=== PATIENT | female | born 1945 | race Hispanic/Latino ===

== ENCOUNTER → 2017-11-07 | Outpatient (CLI) | payer OTHER | END | disposition home or self-care (01) | LOC: RAH 15:47 | PROVIDERS: ATTEND Family Medicine | DX: Z12.31 Encounter for screening mammogram for malignant neoplasm of breast (principal) | CPT/HCPCS: 77067 ==

== ENCOUNTER 2018-02-12 06:16 | Day surgery (SDC) | payer OTHER ==
[~2018-02-12] VITALS: Ht 165.1 cm; Wt 58.0 kg
[~2018-02-12 06:16] MED LIST: LOSA25TA16 PO; LOVA10TA2 PO; METF-446 PO; PANT40TA25 PO; SODIUM CHLORIDE 0.9% 1000ML 1,000 ML IV ONE
[2018-02-12 07:10] VITALS: BP 163/75
[2018-02-12] MEDS ORDERED: PROPOFOL 10 MG/ML 20ML VIAL IV ONE (08:24)
[2018-02-12 09:02] VITALS: BP 121/61
[2018-02-12 09:07] VITALS: BP 126/65
[2018-02-12 09:12] VITALS: BP 151/76
[2018-02-12 09:16] VITALS: BP 144/74
== END 2018-02-12 09:43 | disposition home or self-care (01) ==
LOC: DAH 06:16
PROVIDERS: ATTEND Internal Medicine Gastroenterology
DX: D12.2 Benign neoplasm of ascending colon (principal); K64.0 First degree hemorrhoids; K29.50 Unspecified chronic gastritis without bleeding; I85.00 Esophageal varices without bleeding; K76.6 Portal hypertension; K31.89 Other diseases of stomach and duodenum; E78.4 Other hyperlipidemia; E11.9 Type 2 diabetes mellitus without complications; I10 Essential (primary) hypertension; K57.92 Diverticulitis of intestine, part unspecified, without perforation or abscess without bleeding; K74.60 Unspecified cirrhosis of liver; D72.820 Lymphocytosis (symptomatic); Z79.84 Long term (current) use of oral hypoglycemic drugs; Z79.899 Other long term (current) drug therapy; Z90.710 Acquired absence of both cervix and uterus
CPT/HCPCS: 43239; 45380; 45385; 82948 ×2; 88305; 93005; A4606; J2704; J7030; 45384

== ENCOUNTER → 2018-03-08 | Outpatient (CLI) | payer OTHER ==
[~2018-03-08] MED LIST changes: +IOHEXOL 350 MG/ML 100ML INFUS..BTL IV ONE; -SODIUM CHLORIDE 0.9% 1000ML 1,000 ML IV ONE
== END | disposition home or self-care (01) ==
LOC: OIH 08:45
PROVIDERS: ATTEND Internal Medicine Gastroenterology
DX: I85.00 Esophageal varices without bleeding (principal); K31.89 Other diseases of stomach and duodenum; R18.8 Other ascites; I70.90 Unspecified atherosclerosis; M47.895 Other spondylosis, thoracolumbar region; I25.10 Atherosclerotic heart disease of native coronary artery without angina pectoris; R93.3 Abnormal findings on diagnostic imaging of other parts of digestive tract
CPT/HCPCS: 74178; Q9967

== ENCOUNTER → 2018-11-18 | Outpatient (CLI) | payer OTHER ==
[~2018-11-18] MED LIST changes: -IOHEXOL 350 MG/ML 100ML INFUS..BTL IV ONE; -LOSA25TA16 PO; +LOSA25TA41 PO
== END | disposition home or self-care (01) ==
LOC: RAH 15:39
PROVIDERS: ATTEND Family Medicine
DX: Z12.31 Encounter for screening mammogram for malignant neoplasm of breast (principal)
CPT/HCPCS: 77067

== ENCOUNTER → 2018-12-04 | Outpatient (CLI) | payer OTHER | END | disposition home or self-care (01) | LOC: RAH 09:18 | PROVIDERS: ATTEND Family Medicine | DX: K74.60 Unspecified cirrhosis of liver (principal); K82.8 Other specified diseases of gallbladder; K83.8 Other specified diseases of biliary tract; R18.8 Other ascites | CPT/HCPCS: 76700 ==

== ENCOUNTER → 2019-01-06 | Outpatient (CLI) | payer OTHER | END | disposition home or self-care (01) | LOC: RAH 09:05 | PROVIDERS: ATTEND Family Medicine | DX: K80.50 Calculus of bile duct without cholangitis or cholecystitis without obstruction (principal); K82.8 Other specified diseases of gallbladder | CPT/HCPCS: 74150 ==

== ENCOUNTER → 2019-08-15 | Outpatient (CLI) | payer OTHER ==
[~2019-08-15] MED LIST changes: +LATA7.5D OP; -LOSA25TA41 PO; +LOSA50TA64 PO
[2019-08-15 08:46] LABS: BASOPHILS % (AUTO) 0.6 % (0.0-5.0); EOSINOPHILS % (AUTO) 1.2 % (0.0-8.0); LYMPHOCYTES % (AUTO) 37.5 % (21.0-51.0); MEAN CORPUSCULAR HEMOGLOBIN 32.9 pg (27.0-33.0); MEAN CORPUSCULAR VOLUME 99.7 fL (79-99); MONOCYTES % (AUTO) 7.9 % (3.0-13.0); NEUTROPHILS % (AUTO) 52.8 % (40.0-77.0); PLATELET COUNT (AUTO) 80 K/uL (130-400); RED BLOOD CELL COUNT(AUTO) 3.01 MIL/uL (4.00-5.50); RED CELL DISTRIBUTION WIDTH 12.8 % (11.0-15.5); WHITE BLOOD COUNT (AUTO) 3.4 K/uL (4.8-10.8)
[2019-08-15 09:00] LABS: INR 1.09 (0.85-1.15); PROTHROMBIN TIME 11.7 SEC (9.6-11.6)
[2019-08-15 09:09] LABS: ALBUMIN 2.8 g/dL (3.5-5.0); BILIRUBIN,TOTAL 1.3 mg/dL (0.2-1.0); CREATININE 1.3 mg/dL (0.5-1.5); POTASSIUM 3.9 mmol/L (3.5-5.1); TOTAL PROTEIN, SERUM 7.1 g/dL (6.0-8.3)
== END | disposition home or self-care (01) ==
LOC: RAH 07:34
PROVIDERS: ATTEND Internal Medicine
DX: R18.8 Other ascites (principal); K83.8 Other specified diseases of biliary tract; K74.60 Unspecified cirrhosis of liver; R93.2 Abnormal findings on diagnostic imaging of liver and biliary tract
CPT/HCPCS: 36415; 76700; 80053; 82105; 85025; 85610

== ENCOUNTER → 2019-11-26 | Outpatient (CLI) | payer OTHER ==
[~2019-11-26] MED LIST changes: +ALBUMIN (HUMAN) 25% 200 ML IV SCH; -LATA7.5D OP; -LOSA50TA64 PO; -LOVA10TA2 PO; -METF-446 PO; -PANT40TA25 PO
--- NOTE | 2019-11-26 10:50 | NUR ---
U/S GD PARACENTESIS PROCEDURE PERFORMED BY DR. KAMARA. PUNCTURE SITE RIGHT LOWER QUADRANT OF ABDOMEN AND PATIENT TOLERATED PROCEDURE WELL. TOTAL REMOVED 6.5 LITERS OF CLOUDY YELLOW FLUID. END OF PROCEDURE AT 1130. CATHETER REMOVED AND DRESSING APPLIED. NO BLEEDING NOTED. ALBUMIN 25% 50 GRAMS GIVEN DURING PROCEDURE PER [facility] ALBUMIN PROTOCOL. RIGHT WRIST PIV DC'D, BANDAID APPLIED, DRESSING DRY AND INTACT. DISCHARGE INSTRUCTIONS GIVEN TO PATIENT. PATIENT VERBALIZED UNDERSTANDING. PT DISCHARGED VIA W/C, STABLE, AAO X3 WITH NO C/O PAIN. SPECIMEN SENT TO LAB.
== END | disposition home or self-care (01) ==
LOC: RAH 09:21
PROVIDERS: ATTEND Family Medicine
DX: R18.8 Other ascites (principal); R14.0 Abdominal distension (gaseous); I10 Essential (primary) hypertension; Z79.899 Other long term (current) drug therapy; Z87.891 Personal history of nicotine dependence; Z82.49 Family history of ischemic heart disease and other diseases of the circulatory system; Z83.3 Family history of diabetes mellitus
CPT/HCPCS: 36415; 49083; 85610; 85730; 87071; 87205; 89051; A4215

== ENCOUNTER → 2019-12-26 | Outpatient (CLI) | payer OTHER ==
[~2019-12-26] MED LIST changes: -ALBUMIN (HUMAN) 25% 200 ML IV SCH; +LATA7.5D OP; +LOSA50TA64 PO; +LOVA10TA2 PO; +METF-446 PO; +PANT40TA25 PO
== END | disposition home or self-care (01) ==
LOC: RAH 08:00
PROVIDERS: ATTEND Family Medicine
DX: Z12.31 Encounter for screening mammogram for malignant neoplasm of breast (principal)
CPT/HCPCS: 77067

== ENCOUNTER → 2020-02-02 | Outpatient (CLI) | payer OTHER ==
[~2020-02-02] MED LIST changes: -PANT40TA25 PO; +PANT40TA54 PO
== END | disposition home or self-care (01) ==
LOC: RAH 10:46
PROVIDERS: ATTEND Internal Medicine
DX: K74.60 Unspecified cirrhosis of liver (principal); R18.8 Other ascites
CPT/HCPCS: 76700

== ENCOUNTER → 2020-07-26 | Outpatient (CLI) | payer OTHER ==
[2020-07-26 10:25] LABS: ALBUMIN 2.9 g/dL (3.5-5.0); BILIRUBIN,TOTAL 1.1 mg/dL (0.2-1.0); CREATININE 1.8 mg/dL (0.5-1.5); TOTAL PROTEIN, SERUM 6.8 g/dL (6.0-8.3)
== END | disposition home or self-care (01) ==
LOC: RAH 08:25
PROVIDERS: ATTEND Internal Medicine Gastroenterology
DX: K74.60 Unspecified cirrhosis of liver (principal); R18.8 Other ascites
CPT/HCPCS: 36415; 80053

== ENCOUNTER → 2020-07-28 | Outpatient (CLI) | payer OTHER | END | disposition home or self-care (01) | LOC: RAH 09:56 | PROVIDERS: ATTEND Internal Medicine Gastroenterology | DX: K74.60 Unspecified cirrhosis of liver (principal); R18.8 Other ascites | CPT/HCPCS: 76700; 93975 ==

== ENCOUNTER → 2021-01-10 | Outpatient (CLI) | payer OTHER | END | disposition home or self-care (01) | LOC: RAH 16:05 | PROVIDERS: ATTEND Family Medicine | DX: Z12.31 Encounter for screening mammogram for malignant neoplasm of breast (principal) | CPT/HCPCS: 77067 ==

== ENCOUNTER → 2021-08-17 | Outpatient (CLI) | payer OTHER | END | disposition home or self-care (01) | LOC: RAH 08:26 | PROVIDERS: ATTEND Internal Medicine Gastroenterology | DX: K74.60 Unspecified cirrhosis of liver (principal); J90 Pleural effusion, not elsewhere classified; N26.1 Atrophy of kidney (terminal); R18.8 Other ascites | CPT/HCPCS: 76700; 93975 ==

== ENCOUNTER → 2021-08-26 | Outpatient (CLI) | payer OTHER ==
[~2021-08-26] MED LIST changes: +ALBUMIN (HUMAN) 25% 200 ML IV SCH; +LIDOCAINE HCL 1% 20 ML VIAL ONE
[2021-08-26 10:14] LABS: BASOPHILS % (AUTO) 0.3 % (0.0-5.0); HEMATOCRIT 23.4 % (36-48); LYMPHOCYTES % (AUTO) 22.2 % (21.0-51.0); MEAN CORPUSCULAR HEMOGLOBIN 33.8 pg (27.0-33.0); MEAN CORPUSCULAR HGB CONC 33.3 g/dL (32.0-36.0); MEAN CORPUSCULAR VOLUME 101.3 fL (79-99); MONOCYTES % (AUTO) 10.3 % (3.0-13.0); NEUTROPHILS % (AUTO) 64.9 % (40.0-77.0); PLATELET COUNT (AUTO) 63 K/uL (130-400); RED BLOOD CELL COUNT(AUTO) 2.31 MIL/uL (4.00-5.50); RED CELL DISTRIBUTION WIDTH 13.2 % (11.0-15.5)
[2021-08-26 10:23] LABS: INR 1.16 (0.85-1.15); PROTHROMBIN TIME 12.5 SEC (9.6-11.6)
[2021-08-26 10:28] LABS: ALBUMIN 2.7 g/dL (3.5-5.0); BILIRUBIN,TOTAL 1.2 mg/dL (0.2-1.0); POTASSIUM 5.6 mmol/L (3.5-5.1); TOTAL PROTEIN, SERUM 6.6 g/dL (6.0-8.3)
[2021-08-26 11:23] LABS: LYMPHOCYTES % (MANUAL) 33 % (22-44); MONOCYTES % (MANUAL) 2 % (2-9); SEGMENTED NEUTROPHILS % 65 % (40-70)
[2021-08-26 11:27] LABS: MAN.DIFF COMMENT-IMPRESSION MANUAL DIFFERENTIAL
[2021-08-26 11:30] LABS: PLATELET MORPHOLOGY COMMENT DECREASED
[2021-08-26 14:12] LABS: SPECIMENTYPE,BODY FLUID ASCITES
[2021-08-26 14:13] LABS: APPEARANCE BODY FLUID SLIGHTLY CLOUDY (CLEAR); COLOR,BODY FLUID LT YELLOW (LT YELLOW); TOTAL VOLUME,BODY FLUID 7500 mL
[2021-08-26 14:14] LABS: BODY FLUID WBC 62 /cu. mm.
[2021-08-26 14:15] LABS: BODY FLUID RBC 32 /cu. mm.
[2021-08-26 14:31] LABS: BF LYMPHOCYTE 65 %; BF MONOCYTE 14 %
== END | disposition home or self-care (01) ==
LOC: RAH 09:04
PROVIDERS: ATTEND Internal Medicine Gastroenterology
DX: R18.8 Other ascites (principal); K74.60 Unspecified cirrhosis of liver; J90 Pleural effusion, not elsewhere classified; Z79.01 Long term (current) use of anticoagulants
CPT/HCPCS: 36415; 49083; 80053; 85025; 85610; 87071; 87205; 88112; 88305; 89051; C1729; P9046

== ENCOUNTER → 2021-09-09 | Outpatient (CLI) | payer OTHER ==
[~2021-09-09] MED LIST changes: -LIDOCAINE HCL 1% 20 ML VIAL ONE; +LIDOCAINE HCL MPF 1% 5ML VIAL ONE
[2021-09-09 14:47] LABS: APPEARANCE BODY FLUID CLOUDY (CLEAR); COLOR,BODY FLUID LT YELLOW (LT YELLOW); SPECIMENTYPE,BODY FLUID ASCITES; TOTAL VOLUME,BODY FLUID 4800 mL
[2021-09-09 14:48] LABS: BODY FLUID RBC 159 /cu. mm.; BODY FLUID WBC 67 /cu. mm.
[2021-09-09 14:55] LABS: BF LYMPHOCYTE 41 %; BF MONOCYTE 31 %
== END | disposition home or self-care (01) ==
LOC: RAH 08:54
PROVIDERS: ATTEND Internal Medicine Gastroenterology
DX: R18.8 Other ascites (principal); K74.60 Unspecified cirrhosis of liver; J90 Pleural effusion, not elsewhere classified; Z79.01 Long term (current) use of anticoagulants; Z79.899 Other long term (current) drug therapy
CPT/HCPCS: 49083; 87071; 87205; 89051; C1729; J3490 ×2; P9046

== ENCOUNTER → 2021-09-23 | Outpatient (CLI) | payer OTHER ==
[~2021-09-23] MED LIST changes: +CYAN500L3 SL; +FERS325 PO; +FURO20TA4 PO; -LIDOCAINE HCL MPF 1% 5ML VIAL ONE; +ONDA4TAB10 PO; +SPIR50TA5 PO; +SUCR1TAB2 PO
[2021-09-23 10:04] LABS: ALBUMIN 2.7 g/dL (3.5-5.0); BILIRUBIN,TOTAL 1.5 mg/dL (0.2-1.0); POTASSIUM 3.9 mmol/L (3.5-5.1); TOTAL PROTEIN, SERUM 6.4 g/dL (6.0-8.3)
[2021-09-23 15:12] LABS: SPECIMENTYPE,BODY FLUID ASCITES
[2021-09-23 15:13] LABS: APPEARANCE BODY FLUID SLIGHTLY CLOUDY (CLEAR); BODY FLUID RBC 65 /cu. mm.; BODY FLUID WBC 71 /cu. mm.; COLOR,BODY FLUID YELLOW (LT YELLOW); TOTAL VOLUME,BODY FLUID 3500 mL
[2021-09-23 15:26] LABS: BF LYMPHOCYTE 78 %; BF MESOTHELIAL 5 %; BF MONOCYTE 2 %
== END | disposition home or self-care (01) ==
LOC: RAH 08:51
PROVIDERS: ATTEND Internal Medicine Gastroenterology
DX: R18.8 Other ascites (principal); K74.60 Unspecified cirrhosis of liver; E11.22 Type 2 diabetes mellitus with diabetic chronic kidney disease; I12.9 Hypertensive chronic kidney disease with stage 1 through stage 4 chronic kidney disease, or unspecified chronic kidney disease; N18.32 Chronic kidney disease, stage 3b; J90 Pleural effusion, not elsewhere classified; K21.9 Gastro-esophageal reflux disease without esophagitis; E78.5 Hyperlipidemia, unspecified; D64.9 Anemia, unspecified; Z79.01 Long term (current) use of anticoagulants; Z79.899 Other long term (current) drug therapy; Z90.710 Acquired absence of both cervix and uterus; Z86.010 Personal history of colon polyps
CPT/HCPCS: 36415; 49083; 80053; 87071; 87205; 88112; 88305; 89051; C1729; P9046

== ENCOUNTER 2021-10-03 19:12 | Observation (INO) | payer OTHER ==
[~2021-10-03] VITALS: Ht 165.1 cm; Wt 58.9 kg
[~2021-10-03 19:12] MED LIST changes: -ALBUMIN (HUMAN) 25% 200 ML IV SCH; -CYAN500L3 SL; -FERS325 PO; -FURO20TA4 PO; -ONDA4TAB10 PO; -SPIR50TA5 PO; -SUCR1TAB2 PO
[2021-10-03 19:51] LABS: BASOPHILS % (AUTO) 0.3 % (0.0-5.0); EOSINOPHILS % (AUTO) 1.3 % (0.0-8.0); HEMATOCRIT 22.4 % (36-48); LYMPHOCYTES % (AUTO) 21.5 % (21.0-51.0); MEAN CORPUSCULAR HEMOGLOBIN 32.8 pg (27.0-33.0); MEAN CORPUSCULAR HGB CONC 33.9 g/dL (32.0-36.0); MEAN CORPUSCULAR VOLUME 96.6 fL (79-99); MONOCYTES % (AUTO) 9.4 % (3.0-13.0); NEUTROPHILS % (AUTO) 67.2 % (40.0-77.0); PLATELET COUNT (AUTO) 69 K/uL (130-400); RED BLOOD CELL COUNT(AUTO) 2.32 MIL/uL (4.00-5.50); RED CELL DISTRIBUTION WIDTH 12.4 % (11.0-15.5); WHITE BLOOD COUNT (AUTO) 3.1 K/uL (4.8-10.8)
[2021-10-03 20:00] LABS: POTASSIUM 4.8 mmol/L (3.5-5.1)
[2021-10-03 20:09] LABS: BILIRUBIN,TOTAL 1.5 mg/dL (0.2-1.0); TOTAL PROTEIN, SERUM 6.3 g/dL (6.0-8.3)
[2021-10-03 20:10] LABS: B-TYPE NATRIURETIC PEPTIDE 90 pg/mL (0-100)
[2021-10-03 20:13] LABS: PLATELET MORPHOLOGY COMMENT DECREASED
[2021-10-03] MEDS ORDERED: LACTULOSE 20 GM/30 ML UDCUP PO ONE (22:00)
[2021-10-04] VITALS (9 sets, daily range): BP systolic 119–132; BP diastolic 50–71
[2021-10-04] MEDS ORDERED: 0.9%NACL 1000ML 1,000 ML IV SCH (04:30)
[2021-10-04] MEDS ORDERED: CYAN500L3 SL (06:09)
[2021-10-04] MEDS ORDERED: SUCR1TAB2 PO (06:09)
[2021-10-04] MEDS ORDERED: ONDA4TAB10 PO (06:10)
[2021-10-04] MEDS ORDERED: FURO20TA4 PO (06:12)
[2021-10-04] MEDS ORDERED: FERS325 PO (06:12)
[2021-10-04] MEDS ORDERED: SPIR50TA5 PO (06:12)
[2021-10-04 06:43] LABS: ALBUMIN 2.4 g/dL (3.5-5.0); BILIRUBIN,TOTAL 1.2 mg/dL (0.2-1.0); CREATININE 1.4 mg/dL (0.5-1.5); MAGNESIUM 1.4 mg/dL (1.80-2.40); PHOSPHORUS 2.9 mg/dL (2.5-4.9); POTASSIUM 4.3 mmol/L (3.5-5.1)
[2021-10-04 07:28] LABS: BASOPHILS % (AUTO) 0.7 % (0.0-5.0); EOSINOPHILS % (AUTO) 3.1 % (0.0-8.0); HEMATOCRIT 21.6 % (36-48); MEAN CORPUSCULAR HEMOGLOBIN 33.3 pg (27.0-33.0); MEAN CORPUSCULAR HGB CONC 34.3 g/dL (32.0-36.0); MEAN CORPUSCULAR VOLUME 97.3 fL (79-99); MONOCYTES % (AUTO) 10.2 % (3.0-13.0); PLATELET COUNT (AUTO) 66 K/uL (130-400); RED BLOOD CELL COUNT(AUTO) 2.22 MIL/uL (4.00-5.50); RED CELL DISTRIBUTION WIDTH 12.6 % (11.0-15.5); WHITE BLOOD COUNT (AUTO) 2.9 K/uL (4.8-10.8)
[2021-10-04 08:06] LABS: EOSINOPHILS % (MANUAL) 2 % (1-6); LYMPHOCYTES % (MANUAL) 32 % (22-44); MAN.DIFF COMMENT-IMPRESSION MANUAL DIFFERENTIAL; MONOCYTES % (MANUAL) 4 % (2-9); PLATELET MORPHOLOGY COMMENT DECREASED; SEGMENTED NEUTROPHILS % 62 % (40-70)
[2021-10-04 09:01] LABS: INR 1.1 (0.85-1.15); PROTHROMBIN TIME 11.9 SEC (9.6-11.6)
[2021-10-04 09:02] LABS: PARTIAL THROMBOPLASTIN TIME 28.3 SEC (26.3-35.5)
[2021-10-04] MEDS ORDERED: LACTULOSE 20 GM/30 ML UDCUP ONE (13:37)
[2021-10-04] MEDS: SUCRALFATE 1 GM TABLET PO SCH ×2 (13:37→17:10)
[2021-10-04] MEDS ORDERED: ATORVASTATIN 10 MG TABLET PO SCH (21:00)
[2021-10-05] MEDS ORDERED: PANTOPRAZOLE 40 MG TAB DR PO SCH (09:00)
[2021-10-05] MEDS ORDERED: LOSARTAN 50 MG TABLET PO SCH (09:00)
[2021-10-05] MEDS ORDERED: FERROUS SULFATE 325 MG TABLET.DR PO SCH (09:00)
[2021-10-05] MEDS ORDERED: SPIRONOLACTONE 25 MG TAB PO SCH (09:00)
[2021-10-05] MEDS ORDERED: FUROSEMIDE 20 MG TABLET PO SCH (09:00)
[2021-10-05] MEDS ORDERED: CYANOCOBALAMIN (VITAMIN B-12) 1,000 MCG TABLET PO SCH (09:00)
== END 2021-10-04 21:00 | disposition home or self-care (01) ==
LOC: EDH 19:12 → EDHIP 23:13 → 3DH 10-04 04:46
PROVIDERS: ADMIT Internal Medicine Critical Care Medicine; ATTEND Internal Medicine Critical Care Medicine
DX: K72.90 Hepatic failure, unspecified without coma (principal); R18.8 Other ascites; K74.60 Unspecified cirrhosis of liver; R11.2 Nausea with vomiting, unspecified; I85.00 Esophageal varices without bleeding; E88.09 Other disorders of plasma-protein metabolism, not elsewhere classified; E83.42 Hypomagnesemia; E87.8 Other disorders of electrolyte and fluid balance, not elsewhere classified; E87.1 Hypo-osmolality and hyponatremia; I86.4 Gastric varices; D72.810 Lymphocytopenia; K64.8 Other hemorrhoids; I12.9 Hypertensive chronic kidney disease with stage 1 through stage 4 chronic kidney disease, or unspecified chronic kidney disease; E11.22 Type 2 diabetes mellitus with diabetic chronic kidney disease; N18.9 Chronic kidney disease, unspecified; D63.1 Anemia in chronic kidney disease; K21.9 Gastro-esophageal reflux disease without esophagitis; I86.8 Varicose veins of other specified sites; E11.21 Type 2 diabetes mellitus with diabetic nephropathy; Z79.899 Other long term (current) drug therapy
CPT/HCPCS: 36415 ×2; 49083; 71045; 76705; 80053 ×2; 82140 ×2; 82150; 83690; 83735; 83880; 84100; 84484; 85025 ×2; 85610; 85730; 87804 ×2; 93005; 96360; 96361; 99285; C1729; G0378 ×22

== ENCOUNTER 2021-11-07 10:57 | Emergency (ER) | payer OTHER ==
[~2021-11-07] VITALS: Ht 165.1 cm; Wt 58.5 kg
[~2021-11-07 10:57] MED LIST changes: -ALBUMIN (HUMAN) 25% 200 ML IV ONE; -DOCU-116 PO; -FERR325T22 PO; -LIDOCAINE HCL 1% MDV 50ML VIAL ONE
[2021-11-07 16:04] LABS: BASOPHILS % (AUTO) 0.6 % (0.0-5.0); LYMPHOCYTES % (AUTO) 31.4 % (21.0-51.0); MEAN CORPUSCULAR HEMOGLOBIN 32.4 pg (27.0-33.0); MEAN CORPUSCULAR HGB CONC 33.2 g/dL (32.0-36.0); MEAN CORPUSCULAR VOLUME 97.8 fL (79-99); MONOCYTES % (AUTO) 8.9 % (3.0-13.0); NEUTROPHILS % (AUTO) 55.5 % (40.0-77.0); PLATELET COUNT (AUTO) 60 K/uL (130-400); RED BLOOD CELL COUNT(AUTO) 2.25 MIL/uL (4.00-5.50); RED CELL DISTRIBUTION WIDTH 14.9 % (11.0-15.5); WHITE BLOOD COUNT (AUTO) 1.7 K/uL (4.8-10.8)
[2021-11-07] MEDS ORDERED: FERR325T22 PO ×2 (16:51)
[2021-11-07] MEDS ORDERED: DOCU-116 PO (16:51)
[2021-11-07 17:04] VITALS: BP 118/57
[2021-11-07 17:08] LABS: BAND NEUTROPHILS % (MANUAL) 2 % (0-2); BASOPHILS % (MANUAL) 1 % (0-2); EOSINOPHILS % (MANUAL) 1 % (1-6); LYMPHOCYTES % (MANUAL) 28 % (22-44); MAN.DIFF COMMENT-IMPRESSION MANUAL DIFFERENTIAL; MONOCYTES % (MANUAL) 3 % (2-9); SEGMENTED NEUTROPHILS % 65 % (40-70)
[2021-11-07 17:09] LABS: PLATELET MORPHOLOGY COMMENT DECREASED
[2021-12-16] MEDS ORDERED: CIPR-279 PO (13:28)
[2021-12-19] MEDS ORDERED: LEVO250T43 PO (07:59)
[2021-12-19] MEDS ORDERED: METR-172 PO (07:59)
== END 2021-11-07 17:54 | disposition home or self-care (01) ==
LOC: EDH 10:57
DX: D64.9 Anemia, unspecified (principal); R18.8 Other ascites; E11.9 Type 2 diabetes mellitus without complications; I10 Essential (primary) hypertension; Z79.84 Long term (current) use of oral hypoglycemic drugs; Z79.899 Other long term (current) drug therapy
CPT/HCPCS: 36415; 36430; 49083; 80053; 85025; 85610; 86850; 86900; 86901; 86923; 89051; 96365; C1729; J3490; P9016; P9046

== ENCOUNTER → 2021-11-07 | Outpatient (CLI) | payer OTHER ==
[~2021-11-07] MED LIST changes: +ALBUMIN (HUMAN) 25% 200 ML IV ONE; +CYAN500L3 SL; +DOCU-116 PO; +FERR325T22 PO; +FERS325 PO; +FURO20TA4 PO; -LATA7.5D OP; +LIDOCAINE HCL 1% MDV 50ML VIAL ONE; +ONDA4TAB10 PO; +SPIR50TA5 PO; +SUCR1TAB2 PO
[2021-11-07 09:27] LABS: MEAN CORPUSCULAR HEMOGLOBIN 33.2 pg (27.0-33.0); MEAN CORPUSCULAR VOLUME 100.5 fL (79-99); PLATELET COUNT (AUTO) 79 K/uL (130-400); RED BLOOD CELL COUNT(AUTO) 2.08 MIL/uL (4.00-5.50); RED CELL DISTRIBUTION WIDTH 12.9 % (11.0-15.5); WHITE BLOOD COUNT (AUTO) 2.4 K/uL (4.8-10.8)
[2021-11-07 09:38] LABS: ALBUMIN 2.5 g/dL (3.5-5.0); BILIRUBIN,TOTAL 0.9 mg/dL (0.2-1.0); CREATININE 2.1 mg/dL (0.5-1.5); POTASSIUM 4.8 mmol/L (3.5-5.1)
[2021-11-07 09:42] LABS: INR 1.11 (0.85-1.15)
[2021-11-07 10:01] LABS: BAND NEUTROPHILS % (MANUAL) 1 % (0-2); EOSINOPHILS % (MANUAL) 1 % (1-6); LYMPHOCYTES % (MANUAL) 13 % (22-44); MONOCYTES % (MANUAL) 5 % (2-9); SEGMENTED NEUTROPHILS % 80 % (40-70)
[2021-11-07 10:02] LABS: MAN.DIFF COMMENT-IMPRESSION MANUAL DIFFERENTIAL; PLATELET MORPHOLOGY COMMENT DECREASED
[2021-11-07 10:06] LABS: HEMATOCRIT 20.9 % (36-48)
[2021-11-07 17:41] LABS: APPEARANCE BODY FLUID CLEAR (CLEAR); BODY FLUID WBC 40 /cu. mm.; COLOR,BODY FLUID LT YELLOW (LT YELLOW); SPECIMENTYPE,BODY FLUID ASCITES; TOTAL VOLUME,BODY FLUID 9000 mL
[2021-11-07 17:42] LABS: BODY FLUID RBC 46 /cu. mm.
[2021-11-07 18:28] LABS: BF LYMPHOCYTE 43 %; BF MONOCYTE 4 %; BF OTHER CELLS 2
== END | disposition home or self-care (01) ==
LOC: RAH 08:00
PROVIDERS: ATTEND Internal Medicine Gastroenterology
DX: R18.8 Other ascites (principal); K74.60 Unspecified cirrhosis of liver; E11.22 Type 2 diabetes mellitus with diabetic chronic kidney disease; I12.9 Hypertensive chronic kidney disease with stage 1 through stage 4 chronic kidney disease, or unspecified chronic kidney disease; N18.32 Chronic kidney disease, stage 3b; J90 Pleural effusion, not elsewhere classified; K21.9 Gastro-esophageal reflux disease without esophagitis; E78.5 Hyperlipidemia, unspecified; D64.9 Anemia, unspecified; Z79.899 Other long term (current) drug therapy; Z90.710 Acquired absence of both cervix and uterus; Z86.010 Personal history of colon polyps; Z98.890 Other specified postprocedural states; Z79.01 Long term (current) use of anticoagulants
CPT/HCPCS: 36415; 49083; 80053; 85025; 85610; 89051; C1729; J3490; P9046; 96365

== ENCOUNTER → 2021-11-14 | Outpatient (CLI) | payer OTHER ==
[~2021-11-14] MED LIST changes: +ALBUMIN (HUMAN) 25% 200 ML IV SCH; +DOCU-116 PO; +FERR325T22 PO; +LIDOCAINE HCL 1% MDV 50ML VIAL ONE
[2021-11-14 14:42] LABS: APPEARANCE BODY FLUID CLEAR (CLEAR); COLOR,BODY FLUID YELLOW (LT YELLOW); SPECIMENTYPE,BODY FLUID ASCITES; TOTAL VOLUME,BODY FLUID 3100 mL
[2021-11-14 14:45] LABS: BODY FLUID WBC 76 /cu. mm.
[2021-11-14 14:46] LABS: BODY FLUID RBC 495 /cu. mm.
[2021-11-14 15:17] LABS: BF LYMPHOCYTE 31 %; BF MESOTHELIAL 56 %; BF MONOCYTE 12 %
== END | disposition home or self-care (01) ==
LOC: RAH 08:04
PROVIDERS: ATTEND Internal Medicine Gastroenterology
DX: R18.8 Other ascites (principal); K74.60 Unspecified cirrhosis of liver; E11.22 Type 2 diabetes mellitus with diabetic chronic kidney disease; I12.9 Hypertensive chronic kidney disease with stage 1 through stage 4 chronic kidney disease, or unspecified chronic kidney disease; N18.32 Chronic kidney disease, stage 3b; J90 Pleural effusion, not elsewhere classified; K21.9 Gastro-esophageal reflux disease without esophagitis; E78.5 Hyperlipidemia, unspecified; D64.9 Anemia, unspecified; Z98.890 Other specified postprocedural states; Z90.710 Acquired absence of both cervix and uterus; Z79.01 Long term (current) use of anticoagulants; Z79.899 Other long term (current) drug therapy
CPT/HCPCS: 49083; 89051; C1729; J3490; P9046

== ENCOUNTER → 2021-11-22 | Outpatient (CLI) | payer OTHER ==
[2021-11-22 14:24] LABS: APPEARANCE BODY FLUID CLEAR (CLEAR); COLOR,BODY FLUID YELLOW (LT YELLOW); SPECIMENTYPE,BODY FLUID ASCITES; TOTAL VOLUME,BODY FLUID 3400 mL
[2021-11-22 14:25] LABS: BODY FLUID RBC 86 /cu. mm.; BODY FLUID WBC 36 /cu. mm.
[2021-11-22 15:02] LABS: BF LYMPHOCYTE 63 %; BF MESOTHELIAL 27 %
== END | disposition home or self-care (01) ==
LOC: RAH 07:45
PROVIDERS: ATTEND Internal Medicine Gastroenterology
DX: R18.8 Other ascites (principal); K74.60 Unspecified cirrhosis of liver; E11.22 Type 2 diabetes mellitus with diabetic chronic kidney disease; I12.9 Hypertensive chronic kidney disease with stage 1 through stage 4 chronic kidney disease, or unspecified chronic kidney disease; J90 Pleural effusion, not elsewhere classified; N18.32 Chronic kidney disease, stage 3b; K21.9 Gastro-esophageal reflux disease without esophagitis; E78.5 Hyperlipidemia, unspecified; D64.9 Anemia, unspecified; Z98.890 Other specified postprocedural states; Z90.710 Acquired absence of both cervix and uterus; Z79.899 Other long term (current) drug therapy; Z79.01 Long term (current) use of anticoagulants
CPT/HCPCS: 49083; 89051; C1729; J3490; P9046

== ENCOUNTER → 2021-11-28 | Outpatient (CLI) | payer OTHER ==
[~2021-11-28] MED LIST changes: -LIDOCAINE HCL 1% MDV 50ML VIAL ONE
[2021-11-28 14:07] LABS: SPECIMENTYPE,BODY FLUID ASCITES
[2021-11-28 14:08] LABS: APPEARANCE BODY FLUID CLEAR (CLEAR); COLOR,BODY FLUID YELLOW (LT YELLOW); TOTAL VOLUME,BODY FLUID 3000 mL
[2021-11-28 14:11] LABS: BODY FLUID RBC 98 /cu. mm.; BODY FLUID WBC 122 /cu. mm.
[2021-11-28 14:27] LABS: BF LYMPHOCYTE 42 %; BF MESOTHELIAL 47 %; BF MONOCYTE 10 %
== END ==
LOC: RAH 08:10
PROVIDERS: ATTEND Internal Medicine Gastroenterology
DX: R18.8 Other ascites (principal)
CPT/HCPCS: 49083; 89051; C1729; P9046

== ENCOUNTER 2021-12-02 13:57 | Inpatient (IN) | payer OTHER ==
[~2021-12-02] VITALS: Ht 165.1 cm; Wt 49.6 kg
[~2021-12-02 13:57] MED LIST changes: -ALBUMIN (HUMAN) 25% 200 ML IV SCH
[2021-12-02 14:21] LABS: BASOPHILS % (AUTO) 0.7 % (0.0-5.0); HEMATOCRIT 31.5 % (36-48); LYMPHOCYTES % (AUTO) 28.5 % (21.0-51.0); MEAN CORPUSCULAR HEMOGLOBIN 33.1 pg (27.0-33.0); MEAN CORPUSCULAR HGB CONC 34.3 g/dL (32.0-36.0); MEAN CORPUSCULAR VOLUME 96.6 fL (79-99); NEUTROPHILS % (AUTO) 62.1 % (40.0-77.0); PLATELET COUNT (AUTO) 69 K/uL (130-400); RED BLOOD CELL COUNT(AUTO) 3.26 MIL/uL (4.00-5.50); RED CELL DISTRIBUTION WIDTH 15.2 % (11.0-15.5)
[2021-12-02 14:33] LABS: CREATININE 2.4 mg/dL (0.5-1.5); POTASSIUM 4.8 mmol/L (3.5-5.1)
[2021-12-02 14:42] LABS: ALBUMIN 3.1 g/dL (3.5-5.0); TOTAL PROTEIN, SERUM 6.9 g/dL (6.0-8.3)
[2021-12-02 14:46] LABS: INR 1.04 (0.85-1.15); PROTHROMBIN TIME 11.3 SEC (9.6-11.6)
[2021-12-02 14:47] LABS: PARTIAL THROMBOPLASTIN TIME 25.1 SEC (26.3-35.5)
[2021-12-02] MEDS ORDERED: LACTULOSE 20 GM/30 ML UDCUP PO ONE (15:30)
[2021-12-02 15:42] LABS: BAND NEUTROPHILS % (MANUAL) 1 % (0-2); LYMPHOCYTES % (MANUAL) 24 % (22-44); MAN.DIFF COMMENT-IMPRESSION MANUAL DIFFERENTIAL; MONOCYTES % (MANUAL) 5 % (2-9); SEGMENTED NEUTROPHILS % 70 % (40-70)
[2021-12-02] MEDS ORDERED: 0.9%NACL 1000ML 1,095 ML IV ONE (16:00)
[2021-12-02] MEDS ORDERED: CEFTRIAXONE 1G VIAL IVP ONE (16:00)
[2021-12-02] MEDS: LACTULOSE 20 GM/30 ML UDCUP PO SCH ×2 (16:00→20:54)
[2021-12-02] MEDS ORDERED: LACTULOSE 20 GM/30 ML UDCUP PO PRN (16:00)
[2021-12-02] MEDS ORDERED: ZOSYN 3.375GM +NS 50ML IV SCH (16:00)
[2021-12-02] MEDS: 0.9%NACL 1000ML 1,000 ML IV SCH (16:00)
[2021-12-02] MEDS ORDERED: ALBUMIN (HUMAN) 25% 100 ML IV PRN (16:00)
[2021-12-02] MEDS ORDERED: ONDANSETRON 4MG INJ IVP ONE (16:00)
[2021-12-02] MEDS ORDERED: ACETAMINOPHEN 650 MG SUPPOSITORY RC PRN (16:00)
[2021-12-02] MEDS ORDERED: CLONIDINE HCL 0.1 MG TABLET PO PRN (16:00)
[2021-12-02] MEDS: OCTREOTIDE ACETATE 100 MCG/ML AMP SQ SCH (16:00)
[2021-12-02 16:04] LABS: APPEARANCE,URINE SL CLOUDY (CLEAR); BILIRUBIN,URINE NEGATIVE (NEGATIVE); COLOR,URINE YELLOW (YELLOW); GLUCOSE, URINE (UA) NEGATIVE (NEGATIVE); KETONES,URINE NEGATIVE (NEGATIVE); LEUKOCYTE ESTERASE ,URINE SMALL (NEGATIVE); NITRATE,URINE NEGATIVE (NEGATIVE); OCCULT BLOOD,URINE NEGATIVE (NEGATIVE); PH,URINE 5.5 (5.0-8.0); PROTEIN,URINE NEGATIVE (NEGATIVE); UROBILINOGEN,URINE 0.2 mg/dL (0.2-1.0)
[2021-12-02 16:13] LABS: BACTERIA,URINE Many /HPF (None Seen); MUCUS,URINE Few LPF (None Seen); SQUAMOUS EPITHELIAL CELL,UR Few /HPF (0-2)
[2021-12-02 16:17] LABS: ABG BASE EXCESS -6.9 mmol/L (-2.0-3.0); ABG HCO3 15.4 mmol/L (21.0-28.0); ABG PCO2 23 mmHg (32-45)
[2021-12-02] MEDS: INSULIN HUMULIN R 100 UNIT/ML 3ML SQ SCH ×2 (16:30→21:00)
[2021-12-02 19:55] VITALS: BP 129/69
[2021-12-02] MEDS: ZOSYN 3.375GM +NS 50ML IV SCH (20:53)
[2021-12-02] MEDS: MIDODRINE HCL 5 MG TABLET PO SCH (20:53)
[2021-12-02 23:12] VITALS: BP 116/44
[2021-12-03] MEDS: OCTREOTIDE ACETATE 100 MCG/ML AMP SQ SCH (00:22)
[2021-12-03] MEDS ORDERED: LATA7.5D OP ×2 (01:39)
[2021-12-03 03:33] VITALS: BP 124/51
[2021-12-03] MEDS: LACTULOSE 20 GM/30 ML UDCUP PO SCH ×7 (04:06→21:40)
[2021-12-03] MEDS: ONDANSETRON 4MG INJ IVP PRN ×2 (04:08→08:13)
[2021-12-03] MEDS: INSULIN HUMULIN R 100 UNIT/ML 3ML SQ SCH ×4 (06:00→20:55)
[2021-12-03 06:17] LABS: BASOPHILS % (AUTO) 0.7 % (0.0-5.0); EOSINOPHILS % (AUTO) 3.6 % (0.0-8.0); HEMATOCRIT 27.5 % (36-48); LYMPHOCYTES % (AUTO) 28.3 % (21.0-51.0); MEAN CORPUSCULAR HEMOGLOBIN 32.5 pg (27.0-33.0); MEAN CORPUSCULAR HGB CONC 32.7 g/dL (32.0-36.0); MEAN CORPUSCULAR VOLUME 99.3 fL (79-99); MONOCYTES % (AUTO) 9.1 % (3.0-13.0); NEUTROPHILS % (AUTO) 57.9 % (40.0-77.0); PLATELET COUNT (AUTO) 60 K/uL (130-400); RED BLOOD CELL COUNT(AUTO) 2.77 MIL/uL (4.00-5.50); RED CELL DISTRIBUTION WIDTH 15.4 % (11.0-15.5); WHITE BLOOD COUNT (AUTO) 2.8 K/uL (4.8-10.8)
[2021-12-03 06:37] LABS: CREATININE 2.5 mg/dL (0.5-1.5); MAGNESIUM 1.9 mg/dL (1.80-2.40); THYROID STIMULATING HORMONE 1.76 uIU/mL (0.36-3.74)
[2021-12-03 08:00] VITALS: BP 98/40
[2021-12-03] MEDS ORDERED: OCTREOTIDE ACETATE 100 MCG/ML AMP IV SCH (08:00)
[2021-12-03] MEDS: MIDODRINE HCL 5 MG TABLET PO SCH ×3 (08:14→20:54)
[2021-12-03] MEDS: ZOSYN 3.375GM +NS 50ML IV SCH ×2 (08:14→20:55)
[2021-12-03] MEDS: 0.9%NACL 1000ML 1,000 ML IV SCH ×3 (08:15→20:51)
[2021-12-03] MEDS: SODIUM BICARBONATE 650 MG TAB PO SCH ×2 (09:00→20:55)
[2021-12-03 11:42] VITALS: BP 121/53
[2021-12-03 16:20] VITALS: BP 134/58
[2021-12-03 20:47] VITALS: BP 140/62
[2021-12-03] MEDS: OCTREOTIDE ACETATE 100 MCG/ML AMP IV SCH (20:54)
[2021-12-03] MEDS ORDERED: RENAL DOSE IV PRN (22:00)
[2021-12-03] MEDS: METRONIDAZOLE 500MG/100ML BAG 100 ML IVPB SCH (22:42)
[2021-12-03] MEDS: LEVOFLOXACIN 500 MG/D5W 100 ML 100 ML IV SCH (22:42)
[2021-12-04 00:08] VITALS: BP 102/52
[2021-12-04] MEDS ORDERED: SUCRALFATE 1 GM TABLET ONE (03:38)
[2021-12-04] MEDS: LACTULOSE 20 GM/30 ML UDCUP PO SCH ×4 (03:39→19:50)
[2021-12-04] MEDS: OCTREOTIDE ACETATE 100 MCG/ML AMP IV SCH ×3 (03:40→20:25)
[2021-12-04 04:41] VITALS: BP 107/59
[2021-12-04 04:57] LABS: BASOPHILS % (AUTO) 0.7 % (0.0-5.0); EOSINOPHILS % (AUTO) 5.1 % (0.0-8.0); HEMATOCRIT 25.8 % (36-48); LYMPHOCYTES % (AUTO) 26.4 % (21.0-51.0); MEAN CORPUSCULAR HEMOGLOBIN 33.3 pg (27.0-33.0); MEAN CORPUSCULAR HGB CONC 32.9 g/dL (32.0-36.0); MEAN CORPUSCULAR VOLUME 101.2 fL (79-99); MONOCYTES % (AUTO) 13.7 % (3.0-13.0); NEUTROPHILS % (AUTO) 53.8 % (40.0-77.0); PLATELET COUNT (AUTO) 48 K/uL (130-400); RED BLOOD CELL COUNT(AUTO) 2.55 MIL/uL (4.00-5.50); RED CELL DISTRIBUTION WIDTH 15.1 % (11.0-15.5); WHITE BLOOD COUNT (AUTO) 2.9 K/uL (4.8-10.8)
[2021-12-04 05:13] LABS: CREATININE 2.3 mg/dL (0.5-1.5); POTASSIUM 5.2 mmol/L (3.5-5.1)
[2021-12-04] MEDS: SUCRALFATE 1 GM TABLET PO SCH ×3 (06:10→16:55)
[2021-12-04] MEDS: METRONIDAZOLE 500MG/100ML BAG 100 ML IVPB SCH ×3 (06:10→20:25)
[2021-12-04] MEDS: INSULIN HUMULIN R 100 UNIT/ML 3ML SQ SCH ×4 (06:25→20:21)
[2021-12-04 06:45] LABS: EOSINOPHILS % (MANUAL) 3 % (1-6); LYMPHOCYTES % (MANUAL) 23 % (22-44); SEGMENTED NEUTROPHILS % 74 % (40-70)
[2021-12-04 06:46] LABS: MAN.DIFF COMMENT-IMPRESSION MANUAL DIFFERENTIAL; PLATELET MORPHOLOGY COMMENT MARKED DECREASE
[2021-12-04 07:16] VITALS: BP 113/50
[2021-12-04] MEDS ORDERED: LOSARTAN 50 MG TABLET PO SCH (09:00)
[2021-12-04] MEDS ORDERED: FUROSEMIDE 20 MG TABLET PO SCH (09:00)
[2021-12-04] MEDS ORDERED: NON-FORMULARY MEDICATION 1 EACH (Spironolactone 50 MG) PO SCH (09:00)
[2021-12-04] MEDS: ENOXAPARIN SODIUM 30 MG/0.3 ML SQ SCH (09:00)
[2021-12-04] MEDS: SODIUM BICARBONATE 650 MG TAB PO SCH ×2 (09:40→20:25)
[2021-12-04] MEDS: MIDODRINE HCL 5 MG TABLET PO SCH ×3 (09:41→20:25)
[2021-12-04] MEDS: CYANOCOBALAMIN (VITAMIN B-12) 1,000 MCG TABLET PO SCH (09:42)
[2021-12-04] MEDS: FERROUS SULFATE 325 MG TABLET.DR PO SCH (09:42)
[2021-12-04] MEDS: PANTOPRAZOLE 40 MG/VIAL IVP SCH (09:43)
[2021-12-04] MEDS: ONDANSETRON ODT 4MG TAB PO PRN ×2 (11:00→19:33)
[2021-12-04 12:15] VITALS: BP 107/66
[2021-12-04 16:00] VITALS: BP 117/55
[2021-12-04] MEDS: 0.9%NACL 1000ML 1,000 ML IV SCH (16:55)
[2021-12-04 20:23] VITALS: BP 129/50
[2021-12-04] MEDS: LEVOFLOXACIN 500 MG/D5W 100 ML 100 ML IV SCH (20:25)
[2021-12-04] MEDS: LATANOPROST 2.5 ML DROPS OP SCH (20:49)
[2021-12-05] VITALS (7 sets, daily range): BP systolic 85–120; BP diastolic 41–66
[2021-12-05] MEDS: LACTULOSE 20 GM/30 ML UDCUP PO SCH ×4 (04:50→22:46)
[2021-12-05] MEDS: OCTREOTIDE ACETATE 100 MCG/ML AMP IV SCH ×3 (04:50→20:44)
[2021-12-05] MEDS: METRONIDAZOLE 500MG/100ML BAG 100 ML IVPB SCH ×3 (04:52→22:46)
[2021-12-05 05:47] LABS: BASOPHILS % (AUTO) 0.4 % (0.0-5.0); EOSINOPHILS % (AUTO) 5.4 % (0.0-8.0); HEMATOCRIT 25.9 % (36-48); LYMPHOCYTES % (AUTO) 29.5 % (21.0-51.0); MEAN CORPUSCULAR HEMOGLOBIN 32.3 pg (27.0-33.0); MEAN CORPUSCULAR VOLUME 100.8 fL (79-99); MONOCYTES % (AUTO) 12.4 % (3.0-13.0); NEUTROPHILS % (AUTO) 51.9 % (40.0-77.0); PLATELET COUNT (AUTO) 46 K/uL (130-400); RED BLOOD CELL COUNT(AUTO) 2.57 MIL/uL (4.00-5.50); RED CELL DISTRIBUTION WIDTH 14.8 % (11.0-15.5); WHITE BLOOD COUNT (AUTO) 2.6 K/uL (4.8-10.8)
[2021-12-05] MEDS: INSULIN HUMULIN R 100 UNIT/ML 3ML SQ SCH ×3 (05:52→20:43)
[2021-12-05 06:06] LABS: CREATININE 2.1 mg/dL (0.5-1.5); POTASSIUM 4.5 mmol/L (3.5-5.1)
[2021-12-05] MEDS: SUCRALFATE 1 GM TABLET PO SCH ×3 (06:30→17:31)
[2021-12-05 06:50] LABS: EOSINOPHILS % (MANUAL) 2 % (1-6); LYMPHOCYTES % (MANUAL) 30 % (22-44); MAN.DIFF COMMENT-IMPRESSION MANUAL DIFFERENTIAL; MONOCYTES % (MANUAL) 7 % (2-9); PLATELET MORPHOLOGY COMMENT MARKED DECREASE; SEGMENTED NEUTROPHILS % 61 % (40-70)
[2021-12-05] MEDS: PANTOPRAZOLE 40 MG/VIAL IVP SCH (08:53)
[2021-12-05] MEDS: 0.9%NACL 1000ML 1,000 ML IV SCH (08:53)
[2021-12-05] MEDS: ENOXAPARIN SODIUM 30 MG/0.3 ML SQ SCH (08:54)
[2021-12-05] MEDS: SODIUM BICARBONATE 650 MG TAB PO SCH ×2 (08:55→20:44)
[2021-12-05] MEDS: FERROUS SULFATE 325 MG TABLET.DR PO SCH (08:55)
[2021-12-05] MEDS: MIDODRINE HCL 5 MG TABLET PO SCH ×3 (08:55→20:45)
[2021-12-05] MEDS: CYANOCOBALAMIN (VITAMIN B-12) 1,000 MCG TABLET PO SCH (08:55)
[2021-12-05] MEDS: ONDANSETRON 4MG INJ IVP PRN ×2 (09:57→17:37)
[2021-12-05] MEDS ORDERED: TAMSULOSIN HCL 0.4 MG CAP.ER.24H PO SCH (15:00)
[2021-12-05] MEDS ORDERED: KETOROLAC 15MG/ML VIAL (15MG/ML) IV ONE (19:30)
[2021-12-05] MEDS: LEVOFLOXACIN 500 MG/D5W 100 ML 100 ML IV SCH (20:42)
[2021-12-05] MEDS: LATANOPROST 2.5 ML DROPS OP SCH (20:43)
[2021-12-05] MEDS: LORATADINE/PSEUDOEPHED 5/120 MG 1 EACH TAB.SR.12H PO SCH (21:47)
[2021-12-06 03:59] VITALS: BP 75/40
[2021-12-06] MEDS: 0.9%NACL 1000ML 1,000 ML IV SCH ×2 (04:46→16:01)
[2021-12-06] MEDS: LACTULOSE 20 GM/30 ML UDCUP PO SCH ×4 (04:48→22:32)
[2021-12-06] MEDS: OCTREOTIDE ACETATE 100 MCG/ML AMP IV SCH ×4 (04:49→22:32)
[2021-12-06 05:01] LABS: BASOPHILS % (AUTO) 0.4 % (0.0-5.0); EOSINOPHILS % (AUTO) 5.7 % (0.0-8.0); HEMATOCRIT 26.3 % (36-48); LYMPHOCYTES % (AUTO) 24.9 % (21.0-51.0); MEAN CORPUSCULAR HEMOGLOBIN 32.6 pg (27.0-33.0); MEAN CORPUSCULAR HGB CONC 32.7 g/dL (32.0-36.0); MEAN CORPUSCULAR VOLUME 99.6 fL (79-99); MONOCYTES % (AUTO) 10.7 % (3.0-13.0); NEUTROPHILS % (AUTO) 57.9 % (40.0-77.0); PLATELET COUNT (AUTO) 41 K/uL (130-400); RED BLOOD CELL COUNT(AUTO) 2.64 MIL/uL (4.00-5.50); RED CELL DISTRIBUTION WIDTH 14.6 % (11.0-15.5); WHITE BLOOD COUNT (AUTO) 2.8 K/uL (4.8-10.8)
[2021-12-06 05:10] LABS: CREATININE 2.2 mg/dL (0.5-1.5); POTASSIUM 4.3 mmol/L (3.5-5.1)
[2021-12-06] MEDS: METRONIDAZOLE 500MG/100ML BAG 100 ML IVPB SCH ×3 (06:22→22:33)
[2021-12-06] MEDS: INSULIN HUMULIN R 100 UNIT/ML 3ML SQ SCH ×4 (06:40→21:00)
[2021-12-06] MEDS: SUCRALFATE 1 GM TABLET PO SCH ×3 (07:36→17:00)
[2021-12-06 08:00] VITALS: BP 106/55
[2021-12-06] MEDS: CYANOCOBALAMIN (VITAMIN B-12) 1,000 MCG TABLET PO SCH (08:51)
[2021-12-06] MEDS: MIDODRINE HCL 5 MG TABLET PO SCH ×3 (08:51→22:32)
[2021-12-06] MEDS: TAMSULOSIN HCL 0.4 MG CAP.ER.24H PO SCH (08:51)
[2021-12-06] MEDS: FERROUS SULFATE 325 MG TABLET.DR PO SCH (08:51)
[2021-12-06] MEDS: SODIUM BICARBONATE 650 MG TAB PO SCH ×2 (08:51→22:33)
[2021-12-06] MEDS: ENOXAPARIN SODIUM 30 MG/0.3 ML SQ SCH (09:00)
[2021-12-06] MEDS: PANTOPRAZOLE 40 MG/VIAL IVP SCH (09:32)
[2021-12-06] MEDS: ONDANSETRON 4MG INJ IVP PRN ×2 (10:31→16:25)
[2021-12-06 11:47] VITALS: BP 103/55
[2021-12-06 16:00] VITALS: BP 102/61
[2021-12-06 20:16] VITALS: BP 98/58
[2021-12-06] MEDS: LEVOFLOXACIN 500 MG/D5W 100 ML 100 ML IV SCH (22:32)
[2021-12-06] MEDS: LORATADINE/PSEUDOEPHED 5/120 MG 1 EACH TAB.SR.12H PO SCH (22:33)
[2021-12-06] MEDS: LATANOPROST 2.5 ML DROPS OP SCH (22:34)
[2021-12-06 23:40] VITALS: BP 92/49
[2021-12-07 03:54] VITALS: BP 114/56
[2021-12-07] MEDS: LACTULOSE 20 GM/30 ML UDCUP PO SCH ×4 (04:00→21:23)
[2021-12-07] MEDS: METRONIDAZOLE 500MG/100ML BAG 100 ML IVPB SCH ×3 (05:40→21:24)
[2021-12-07 05:55] LABS: BASOPHILS % (AUTO) 0.4 % (0.0-5.0); EOSINOPHILS % (AUTO) 5.1 % (0.0-8.0); HEMATOCRIT 24.6 % (36-48); LYMPHOCYTES % (AUTO) 20.2 % (21.0-51.0); MEAN CORPUSCULAR HEMOGLOBIN 32.9 pg (27.0-33.0); MEAN CORPUSCULAR HGB CONC 32.9 g/dL (32.0-36.0); MONOCYTES % (AUTO) 8.7 % (3.0-13.0); NEUTROPHILS % (AUTO) 65.6 % (40.0-77.0); PLATELET COUNT (AUTO) 40 K/uL (130-400); RED BLOOD CELL COUNT(AUTO) 2.46 MIL/uL (4.00-5.50); RED CELL DISTRIBUTION WIDTH 14.8 % (11.0-15.5); WHITE BLOOD COUNT (AUTO) 2.8 K/uL (4.8-10.8)
[2021-12-07] MEDS: INSULIN HUMULIN R 100 UNIT/ML 3ML SQ SCH ×4 (06:10→21:00)
[2021-12-07 06:19] LABS: ALBUMIN 2.1 g/dL (3.5-5.0); CREATININE 2.5 mg/dL (0.5-1.5); MAGNESIUM 1.5 mg/dL (1.80-2.40); POTASSIUM 4.1 mmol/L (3.5-5.1)
[2021-12-07 07:05] VITALS: BP 100/50
[2021-12-07 07:10] LABS: INR 1.36 (0.85-1.15); PROTHROMBIN TIME 14.6 SEC (9.6-11.6)
[2021-12-07 07:12] LABS: PARTIAL THROMBOPLASTIN TIME 38.1 SEC (26.3-35.5)
[2021-12-07 07:25] LABS: BASOPHILS % (MANUAL) 1 % (0-2); EOSINOPHILS % (MANUAL) 4 % (1-6); LYMPHOCYTES % (MANUAL) 12 % (22-44); MAN.DIFF COMMENT-IMPRESSION MANUAL DIFFERENTIAL; MONOCYTES % (MANUAL) 2 % (2-9); PLATELET MORPHOLOGY COMMENT MARKED DECREASE; SEGMENTED NEUTROPHILS % 81 % (40-70)
[2021-12-07] MEDS: MIDODRINE HCL 5 MG TABLET PO SCH ×3 (10:20→21:23)
[2021-12-07] MEDS: CYANOCOBALAMIN (VITAMIN B-12) 1,000 MCG TABLET PO SCH (10:20)
[2021-12-07] MEDS: TAMSULOSIN HCL 0.4 MG CAP.ER.24H PO SCH (10:20)
[2021-12-07] MEDS: SODIUM BICARBONATE 650 MG TAB PO SCH ×2 (10:21→21:23)
[2021-12-07] MEDS: FERROUS SULFATE 325 MG TABLET.DR PO SCH (10:21)
[2021-12-07] MEDS: PANTOPRAZOLE 40 MG/VIAL IVP SCH (10:21)
[2021-12-07] MEDS: ENOXAPARIN SODIUM 30 MG/0.3 ML SQ SCH (10:22)
[2021-12-07] MEDS: ACETAMINOPHEN 325 MG TAB PO PRN (10:43)
[2021-12-07] MEDS: ONDANSETRON 4MG INJ IVP PRN (10:43)
[2021-12-07] MEDS: OCTREOTIDE ACETATE 100 MCG/ML AMP IV SCH ×2 (12:00→21:23)
[2021-12-07 12:07] VITALS: BP 116/64
[2021-12-07 16:08] VITALS: BP 111/59
[2021-12-07] MEDS: SUCRALFATE 1 GM TABLET PO SCH ×2 (17:00→17:06)
[2021-12-07] MEDS: 0.9%NACL 1000ML 1,000 ML IV SCH (18:11)
[2021-12-07 19:15] VITALS: BP_SYST 104; BP_SYST 107; BP_DIAS 57; BP_DIAS 61
[2021-12-07] MEDS: LATANOPROST 2.5 ML DROPS OP SCH (21:00)
[2021-12-07] MEDS: LORATADINE/PSEUDOEPHED 5/120 MG 1 EACH TAB.SR.12H PO SCH (21:23)
[2021-12-07] MEDS: LEVOFLOXACIN 500 MG/D5W 100 ML 100 ML IV SCH (21:24)
[2021-12-08] VITALS (11 sets, daily range): BP systolic 92–127; BP diastolic 54–67
[2021-12-08] MEDS: LACTULOSE 20 GM/30 ML UDCUP PO SCH ×4 (04:00→20:52)
[2021-12-08] MEDS: OCTREOTIDE ACETATE 100 MCG/ML AMP IV SCH ×3 (04:10→20:52)
[2021-12-08] MEDS: ACETAMINOPHEN 325 MG TAB PO PRN ×2 (04:52→23:19)
[2021-12-08 05:33] LABS: CREATININE 2.8 mg/dL (0.5-1.5); MAGNESIUM 1.6 mg/dL (1.80-2.40); POTASSIUM 4.2 mmol/L (3.5-5.1); TOTAL PROTEIN, SERUM 4.9 g/dL (6.0-8.3)
[2021-12-08] MEDS: METRONIDAZOLE 500MG/100ML BAG 100 ML IVPB SCH ×3 (06:05→20:53)
[2021-12-08] MEDS: INSULIN HUMULIN R 100 UNIT/ML 3ML SQ SCH ×3 (06:36→20:15)
[2021-12-08] MEDS ORDERED: ALBUMIN (HUMAN) 25% 200 ML IV SCH (09:30)
[2021-12-08] MEDS: SUCRALFATE 1 GM TABLET PO SCH ×3 (10:47→17:57)
[2021-12-08] MEDS: FERROUS SULFATE 325 MG TABLET.DR PO SCH (10:47)
[2021-12-08] MEDS: SODIUM BICARBONATE 650 MG TAB PO SCH ×2 (10:47→20:52)
[2021-12-08] MEDS: MIDODRINE HCL 5 MG TABLET PO SCH ×3 (10:48→20:52)
[2021-12-08] MEDS: MEROPENEM 500 MG VIAL IVP SCH ×2 (10:48→18:03)
[2021-12-08] MEDS: CYANOCOBALAMIN (VITAMIN B-12) 1,000 MCG TABLET PO SCH (10:48)
[2021-12-08] MEDS: TAMSULOSIN HCL 0.4 MG CAP.ER.24H PO SCH (10:49)
[2021-12-08] MEDS: PANTOPRAZOLE 40 MG/VIAL IVP SCH (10:49)
[2021-12-08 12:58] LABS: APPEARANCE BODY FLUID TURBID (CLEAR); BODY FLUID WBC 150 /cu. mm.; COLOR,BODY FLUID RED (LT YELLOW); SPECIMENTYPE,BODY FLUID ASCITES; TOTAL VOLUME,BODY FLUID 5000 mL
[2021-12-08 13:02] LABS: BODY FLUID RBC 111000 /cu. mm.
[2021-12-08 13:17] LABS: BF LYMPHOCYTE 49 %; BF MESOTHELIAL 27 %; BF MONOCYTE 16 %
[2021-12-08] MEDS: 0.9%NACL 1000ML 1,000 ML IV SCH (20:51)
[2021-12-08] MEDS: LORATADINE/PSEUDOEPHED 5/120 MG 1 EACH TAB.SR.12H PO SCH (20:52)
[2021-12-08] MEDS: LEVOFLOXACIN 500 MG/D5W 100 ML 100 ML IV SCH (20:53)
[2021-12-08] MEDS: LATANOPROST 2.5 ML DROPS OP SCH (20:54)
[2021-12-09 00:18] VITALS: BP 104/58
[2021-12-09] MEDS: MEROPENEM 500 MG VIAL IVP SCH ×3 (00:54→15:40)
[2021-12-09] MEDS: LACTULOSE 20 GM/30 ML UDCUP PO SCH ×4 (04:00→21:12)
[2021-12-09 04:11] VITALS: BP 103/54
[2021-12-09] MEDS: OCTREOTIDE ACETATE 100 MCG/ML AMP IV SCH ×3 (04:17→21:06)
[2021-12-09 05:18] LABS: BASOPHILS % (AUTO) 0.6 % (0.0-5.0); EOSINOPHILS % (AUTO) 4.3 % (0.0-8.0); LYMPHOCYTES % (AUTO) 19.5 % (21.0-51.0); MEAN CORPUSCULAR HEMOGLOBIN 33.2 pg (27.0-33.0); MEAN CORPUSCULAR HGB CONC 33.8 g/dL (32.0-36.0); MEAN CORPUSCULAR VOLUME 98.4 fL (79-99); MONOCYTES % (AUTO) 9.9 % (3.0-13.0); NEUTROPHILS % (AUTO) 65.4 % (40.0-77.0); PLATELET COUNT (AUTO) 61 K/uL (130-400); RED BLOOD CELL COUNT(AUTO) 2.44 MIL/uL (4.00-5.50); RED CELL DISTRIBUTION WIDTH 14.9 % (11.0-15.5); WHITE BLOOD COUNT (AUTO) 3.2 K/uL (4.8-10.8)
[2021-12-09 05:35] LABS: ALBUMIN 2.3 g/dL (3.5-5.0); CREATININE 2.6 mg/dL (0.5-1.5); MAGNESIUM 1.5 mg/dL (1.80-2.40); POTASSIUM 3.8 mmol/L (3.5-5.1)
[2021-12-09] MEDS: METRONIDAZOLE 500MG/100ML BAG 100 ML IVPB SCH ×3 (05:55→21:12)
[2021-12-09] MEDS: INSULIN HUMULIN R 100 UNIT/ML 3ML SQ SCH ×4 (05:55→21:00)
[2021-12-09 07:50] VITALS: BP 93/49
[2021-12-09] MEDS: FERROUS SULFATE 325 MG TABLET.DR PO SCH (08:17)
[2021-12-09] MEDS: TAMSULOSIN HCL 0.4 MG CAP.ER.24H PO SCH (08:17)
[2021-12-09] MEDS: PANTOPRAZOLE 40 MG/VIAL IVP SCH (08:17)
[2021-12-09] MEDS: SUCRALFATE 1 GM TABLET PO SCH ×3 (08:18→16:59)
[2021-12-09] MEDS: SODIUM BICARBONATE 650 MG TAB PO SCH ×2 (08:18→21:06)
[2021-12-09] MEDS: MIDODRINE HCL 5 MG TABLET PO SCH ×3 (08:18→21:06)
[2021-12-09] MEDS: CYANOCOBALAMIN (VITAMIN B-12) 1,000 MCG TABLET PO SCH (08:18)
[2021-12-09] MEDS ORDERED: ALBUMIN (HUMAN) 25% 100 ML IV PRN (09:00)
[2021-12-09] MEDS: 0.9%NACL 1000ML 1,000 ML IV SCH ×2 (10:11→21:07)
[2021-12-09 11:00] VITALS: BP 93/52
[2021-12-09 16:00] VITALS: BP 98/50
[2021-12-09] MEDS ORDERED: 0.9%NACL 1000ML 1,000 ML IV SCH (17:00)
[2021-12-09 20:00] VITALS: BP 114/66
[2021-12-09] MEDS: LORATADINE/PSEUDOEPHED 5/120 MG 1 EACH TAB.SR.12H PO SCH (21:06)
[2021-12-09] MEDS: TOBRAMYCIN 0.3% 5 ML OPTH SOLN OD SCH (21:07)
[2021-12-09] MEDS: LEVOFLOXACIN 500 MG/D5W 100 ML 100 ML IV SCH (21:12)
[2021-12-09] MEDS: LATANOPROST 2.5 ML DROPS OP SCH (21:13)
[2021-12-10] MEDS: MEROPENEM 500 MG VIAL IVP SCH ×2 (00:17→09:19)
[2021-12-10 00:19] VITALS: BP 102/63
[2021-12-10] MEDS: LACTULOSE 20 GM/30 ML UDCUP PO SCH ×3 (04:11→16:00)
[2021-12-10] MEDS: OCTREOTIDE ACETATE 100 MCG/ML AMP IV SCH ×2 (04:11→12:00)
[2021-12-10 04:33] VITALS: BP 106/64
[2021-12-10] MEDS: METRONIDAZOLE 500MG/100ML BAG 100 ML IVPB SCH ×2 (05:15→14:19)
[2021-12-10 05:24] LABS: BASOPHILS % (AUTO) 0.3 % (0.0-5.0); EOSINOPHILS % (AUTO) 3.6 % (0.0-8.0); HEMATOCRIT 24.2 % (36-48); LYMPHOCYTES % (AUTO) 18.6 % (21.0-51.0); MEAN CORPUSCULAR HEMOGLOBIN 32.9 pg (27.0-33.0); MEAN CORPUSCULAR HGB CONC 33.5 g/dL (32.0-36.0); MEAN CORPUSCULAR VOLUME 98.4 fL (79-99); MONOCYTES % (AUTO) 10.2 % (3.0-13.0); PLATELET COUNT (AUTO) 62 K/uL (130-400); RED BLOOD CELL COUNT(AUTO) 2.46 MIL/uL (4.00-5.50); RED CELL DISTRIBUTION WIDTH 15.1 % (11.0-15.5); WHITE BLOOD COUNT (AUTO) 3.3 K/uL (4.8-10.8)
[2021-12-10 05:40] LABS: ALBUMIN 2.2 g/dL (3.5-5.0); CREATININE 2.8 mg/dL (0.5-1.5); MAGNESIUM 1.6 mg/dL (1.80-2.40); POTASSIUM 3.9 mmol/L (3.5-5.1)
[2021-12-10] MEDS: INSULIN HUMULIN R 100 UNIT/ML 3ML SQ SCH ×3 (05:59→16:17)
[2021-12-10] MEDS: SUCRALFATE 1 GM TABLET PO SCH ×2 (06:02→12:25)
[2021-12-10 08:18] VITALS: BP 101/67
[2021-12-10] MEDS: TAMSULOSIN HCL 0.4 MG CAP.ER.24H PO SCH (09:20)
[2021-12-10] MEDS: FERROUS SULFATE 325 MG TABLET.DR PO SCH (09:20)
[2021-12-10] MEDS: PANTOPRAZOLE 40 MG/VIAL IVP SCH (09:20)
[2021-12-10] MEDS: MIDODRINE HCL 5 MG TABLET PO SCH ×2 (09:20→14:19)
[2021-12-10] MEDS: CYANOCOBALAMIN (VITAMIN B-12) 1,000 MCG TABLET PO SCH (09:20)
[2021-12-10] MEDS: SODIUM BICARBONATE 650 MG TAB PO SCH (09:20)
[2021-12-10] MEDS: TOBRAMYCIN 0.3% 5 ML OPTH SOLN OD SCH (09:32)
[2021-12-10 11:49] VITALS: BP 97/59
[2021-12-10] MEDS: 0.9%NACL 1000ML 1,000 ML IV SCH (12:30)
[2021-12-10] MEDS ORDERED: TOBRAMYCIN/DEXAMETHASONE OPTH SUSP 2.5 ML BOT AD SCH (14:35)
[2021-12-10 15:50] VITALS: BP 96/55
[2021-12-10] MEDS ORDERED: P-EP-94 PO ×2 (16:20)
[2021-12-10] MEDS ORDERED: SODI650T PO ×2 (16:20)
[2021-12-16] MEDS ORDERED: CIPR-279 PO (13:28)
[2021-12-19] MEDS ORDERED: METR-172 PO (07:59)
[2021-12-19] MEDS ORDERED: LEVO250T43 PO (07:59)
== END 2021-12-10 19:00 | DRG 441 ==
LOC: EDH 13:57 → EDHIP 15:46 → 2DH 19:15 → 3BH 12-03 12:11
PROVIDERS: ADMIT Internal Medicine Pulmonary Disease; ATTEND Internal Medicine Pulmonary Disease
PROC: 30233R1 Transfusion of Nonautologous Platelets into Peripheral Vein, Percutaneous Approach (ICD-10-PCS; principal; 2021-12-08)
PROC: 0W9G3ZZ Drainage of Peritoneal Cavity, Percutaneous Approach (ICD-10-PCS; 2021-12-08)
DX: K72.90 Hepatic failure, unspecified without coma (principal); K65.2 Spontaneous bacterial peritonitis; K76.7 Hepatorenal syndrome; D61.818 Other pancytopenia; R18.8 Other ascites; N39.0 Urinary tract infection, site not specified; N18.4 Chronic kidney disease, stage 4 (severe); E44.0 Moderate protein-calorie malnutrition; Z68.1 Body mass index [BMI] 19.9 or less, adult; K74.60 Unspecified cirrhosis of liver; E88.09 Other disorders of plasma-protein metabolism, not elsewhere classified; K64.8 Other hemorrhoids; I12.9 Hypertensive chronic kidney disease with stage 1 through stage 4 chronic kidney disease, or unspecified chronic kidney disease; E11.22 Type 2 diabetes mellitus with diabetic chronic kidney disease; K21.9 Gastro-esophageal reflux disease without esophagitis; Z20.822 Contact with and (suspected) exposure to COVID-19; Z90.710 Acquired absence of both cervix and uterus; Z98.51 Tubal ligation status; E11.21 Type 2 diabetes mellitus with diabetic nephropathy; B96.20 Unspecified Escherichia coli [E. coli] as the cause of diseases classified elsewhere
CPT/HCPCS: 36415; 36600; 49083; 70450; 71045; 74176; 80048; 80053; 81001; 82140; 82435; 82550; 82803; 82947; 82948; 83605; 83735; 84132; 84295; 84443; 84484; 85018; 85025; 85049; 85610; 85730; 86850; 86900; 86901; 87040; 87071; 87077; 87088; 87186; 87205; 87635; 87804; 89051; 93005; 97039; C1729; C9113; G0378; J0696; J1650; J1885; J1956; J2185; J2354; J2405; J2543; J3490; J7030; P9034; P9046

== ENCOUNTER 2021-12-16 10:48 | Emergency (ER) | payer OTHER ==
[~2021-12-16] VITALS: Ht 165.1 cm; Wt 49.9 kg
[~2021-12-16 10:48] MED LIST changes: -DOCU-116 PO; -FERS325 PO; +LATA7.5D OP; -LOVA10TA2 PO; -METF-446 PO; +P-EP-94 PO; -PANT40TA54 PO; +SODI650T PO
[2021-12-16 11:16] LABS: BASOPHILS % (AUTO) 0.3 % (0.0-5.0); EOSINOPHILS % (AUTO) 2.5 % (0.0-8.0); LYMPHOCYTES % (AUTO) 21.8 % (21.0-51.0); MEAN CORPUSCULAR HEMOGLOBIN 34.3 pg (27.0-33.0); MEAN CORPUSCULAR HGB CONC 34.6 g/dL (32.0-36.0); MEAN CORPUSCULAR VOLUME 99.2 fL (79-99); MONOCYTES % (AUTO) 11.2 % (3.0-13.0); NEUTROPHILS % (AUTO) 63.4 % (40.0-77.0); PLATELET COUNT (AUTO) 44 K/uL (130-400); RED BLOOD CELL COUNT(AUTO) 2.42 MIL/uL (4.00-5.50); RED CELL DISTRIBUTION WIDTH 17.2 % (11.0-15.5); WHITE BLOOD COUNT (AUTO) 3.6 K/uL (4.8-10.8)
[2021-12-16 11:44] LABS: INR 1.57 (0.85-1.15); PROTHROMBIN TIME 16.7 SEC (9.6-11.6)
[2021-12-16 12:00] LABS: ALBUMIN 2.7 g/dL (3.5-5.0); CREATININE 3.5 mg/dL (0.5-1.5); POTASSIUM 3.4 mmol/L (3.5-5.1); TOTAL PROTEIN, SERUM 5.3 g/dL (6.0-8.3)
[2021-12-16] MEDS ORDERED: ALBUMIN (HUMAN) 25% 200 ML IV SCH (12:30)
[2021-12-16] MEDS ORDERED: CIPR-279 PO ×2 (13:28)
[2021-12-16 15:00] VITALS: BP 100/54
[2021-12-16 16:14] LABS: APPEARANCE BODY FLUID CLEAR (CLEAR); BODY FLUID WBC 50 /cu. mm.; COLOR,BODY FLUID YELLOW (LT YELLOW); SPECIMENTYPE,BODY FLUID ASCITES; TOTAL VOLUME,BODY FLUID 6800 mL
[2021-12-16 16:17] LABS: BODY FLUID RBC 40 /cu. mm.
[2021-12-16 16:54] LABS: BF EOSINOPHIL 1 %; BF LYMPHOCYTE 55 %
== END 2021-12-16 16:24 | disposition home or self-care (01) ==
LOC: EDH 10:48
DX: R18.8 Other ascites (principal); E72.20 Disorder of urea cycle metabolism, unspecified; E11.9 Type 2 diabetes mellitus without complications; K21.9 Gastro-esophageal reflux disease without esophagitis; Z87.440 Personal history of urinary (tract) infections; Z79.899 Other long term (current) drug therapy
CPT/HCPCS: 49083; 99285; 96365; 80053; 82140; 85025; 89051; 85610; 87071; 87205; 36415; P9046; C1729

== ENCOUNTER 2021-12-17 14:04 | Inpatient (IN) | payer OTHER ==
[~2021-12-17] VITALS: Ht 160 cm; Wt 57.8 kg
[~2021-12-17 14:04] MED LIST changes: +CIPR-279 PO
[2021-12-17 15:26] LABS: BASOPHILS % (AUTO) 0.3 % (0.0-5.0); EOSINOPHILS % (AUTO) 1.5 % (0.0-8.0); HEMATOCRIT 26.2 % (36-48); LYMPHOCYTES % (AUTO) 14.5 % (21.0-51.0); MEAN CORPUSCULAR HEMOGLOBIN 33.1 pg (27.0-33.0); MEAN CORPUSCULAR HGB CONC 33.2 g/dL (32.0-36.0); MEAN CORPUSCULAR VOLUME 99.6 fL (79-99); MONOCYTES % (AUTO) 8.2 % (3.0-13.0); NEUTROPHILS % (AUTO) 74.9 % (40.0-77.0); PLATELET COUNT (AUTO) 42 K/uL (130-400); RED BLOOD CELL COUNT(AUTO) 2.63 MIL/uL (4.00-5.50); RED CELL DISTRIBUTION WIDTH 17.9 % (11.0-15.5); WHITE BLOOD COUNT (AUTO) 3.3 K/uL (4.8-10.8)
[2021-12-17 15:44] LABS: ALBUMIN 3.3 g/dL (3.5-5.0); CREATININE 3.5 mg/dL (0.5-1.5); TOTAL PROTEIN, SERUM 5.5 g/dL (6.0-8.3)
[2021-12-17 15:46] LABS: POTASSIUM 2.9 mmol/L (3.5-5.1)
[2021-12-17 16:53] LABS: APPEARANCE,URINE Clear (CLEAR); BILIRUBIN,URINE Small (NEGATIVE); COLOR,URINE Dark Yellow (YELLOW); GLUCOSE, URINE (UA) Negative (NEGATIVE); KETONES,URINE Trace mg/dL (NEGATIVE); LEUKOCYTE ESTERASE ,URINE Small (NEGATIVE); NITRATE,URINE Positive (NEGATIVE); OCCULT BLOOD,URINE Moderate (NEGATIVE); PROTEIN,URINE Trace mg/dL (NEGATIVE)
[2021-12-17 17:13] LABS: BACTERIA,URINE Rare /HPF (None Seen); RBC,URINE 0-1 /HPF (0-1); YEAST,URINE BUDDING Few /HPF (None Seen)
[2021-12-17 17:14] LABS: SQUAMOUS EPITHELIAL CELL,UR Rare /HPF (0-2)
[2021-12-17] MEDS ORDERED: POTASSIUM CHLORIDE 10MEQ/100ML 100 ML IV ONE (17:21)
[2021-12-17] MEDS ORDERED: POTASSIUM CHLORIDE 10MEQ/100ML 10 MEQ/100 ML ML IV ONE (17:30)
[2021-12-17] MEDS ORDERED: LIDOCAINE HCL 1% 10 ML VIAL ONE (17:35)
[2021-12-17] MEDS ORDERED: OXYMETAZOLINE HCL SPRAY 15 ML BOTTLE ONE (17:44)
[2021-12-17] MEDS ORDERED: DEXTROSE 5%-WATER 1,000 ML IV SCH (18:00)
[2021-12-17] MEDS ORDERED: MIDAZOLAM HCL 1 MG/ML 2ML VIAL ONE (18:16)
[2021-12-17] MEDS ORDERED: DILTIAZEM 25MG INJ IVP ONE ×2 (18:19→19:00)
[2021-12-17] MEDS ORDERED: KETOROLAC 30MG VIAL (30MG/ML) ONE (18:35)
[2021-12-17] MEDS ORDERED: DILTIAZEM 125 MG/25 ML INJ 125 MG in 0.9%NACL 100ML 100 ML IV SCH (19:30)
[2021-12-17] MEDS: POTASSIUM CHLORIDE 20MEQ/100ML 100 ML IV PRN (19:54)
[2021-12-17] MEDS ORDERED: LIDOCAINE HCL-MPF 1% 2ML VIAL IV PRN (20:00)
[2021-12-17] MEDS ORDERED: KCL 20 MEQ ERTAB PO PRN (20:00)
[2021-12-17] MEDS ORDERED: POTASSIUM CHLORIDE 10% ELIXIR 20 MEQ/15 ML UDCUP PO PRN (20:00)
[2021-12-17] MEDS: LEVOFLOXACIN 500 MG/D5W 100 ML 100 ML IV SCH (22:30)
[2021-12-18] VITALS (64 sets, daily range): BP systolic 82–149; BP diastolic 30–112
[2021-12-18] MEDS ORDERED: LORAZEPAM 2 MG/ML 1 ML VIAL IVP ONE
[2021-12-18] MEDS ORDERED: PHENYLEPHRINE HCL 10 MG/ML 1ML VIAL IV ONE (02:25)
[2021-12-18] MEDS: PHENYLEPHRINE HCL 10 MG in 0.9% NACL 250ML 250 ML IV PRN ×3 (03:05→17:50)
[2021-12-18] MEDS ORDERED: CEFTRIAXONE 2GM VIAL IVP SCH ×2 (06:00)
[2021-12-18 07:53] LABS: HEMATOCRIT 24.1 % (36-48); MEAN CORPUSCULAR HEMOGLOBIN 33.9 pg (27.0-33.0); MEAN CORPUSCULAR HGB CONC 33.6 g/dL (32.0-36.0); MEAN CORPUSCULAR VOLUME 100.8 fL (79-99); PLATELET COUNT (AUTO) 39 K/uL (130-400); RED BLOOD CELL COUNT(AUTO) 2.39 MIL/uL (4.00-5.50); RED CELL DISTRIBUTION WIDTH 18.1 % (11.0-15.5); WHITE BLOOD COUNT (AUTO) 3.5 K/uL (4.8-10.8)
[2021-12-18 07:59] LABS: INR 1.84 (0.85-1.15); PROTHROMBIN TIME 19.4 SEC (9.6-11.6)
[2021-12-18 08:02] LABS: CREATININE 3.3 mg/dL (0.5-1.5); MAGNESIUM 1.3 mg/dL (1.80-2.40); POTASSIUM 3.1 mmol/L (3.5-5.1)
[2021-12-18] MEDS ORDERED: MAGNESIUM 2GM PREMIX 50ML 50 ML IV PRN (08:30)
[2021-12-18 09:09] LABS: ABG BASE EXCESS -12.6 mmol/L (-2.0-3.0); ABG HCO3 13.1 mmol/L (21.0-28.0); ABG OXYGEN SATURATION 97.4 % (95.0-99.0); ABG PCO2 30 mmHg (32-45)
[2021-12-18 09:24] LABS: THYROID STIMULATING HORMONE 10.78 uIU/mL (0.36-3.74)
[2021-12-18] MEDS: POTASSIUM CHLORIDE 20MEQ/100ML 100 ML IV PRN (09:59)
[2021-12-18] MEDS ORDERED: SODIUM BICARB 50MEQ 50ML VIAL IV SCH (10:00)
[2021-12-18] MEDS: METRONIDAZOLE 500MG/100ML BAG 100 ML IVPB SCH ×2 (14:41→22:43)
[2021-12-18] MEDS ORDERED: AMIODARONE 900MG VIAL 150 MG in DEXTROSE 5%-WATER 100 ML IV SCH (15:30)
[2021-12-18] MEDS ORDERED: AMIODARONE 900MG VIAL 360 MG in DEXTROSE 5%-WATER 200 ML IV SCH (16:00)
[2021-12-18] MEDS ORDERED: AMIODARONE 900MG VIAL 540 MG in DEXTROSE 5%-WATER 300 ML IV SCH (22:00)
[2021-12-18] MEDS: LEVOFLOXACIN 500 MG/D5W 100 ML 100 ML IV SCH (23:40)
[2021-12-18] MEDS: MORPHINE 2 MG SYG IVP PRN (23:55)
[2021-12-19] VITALS (36 sets, daily range): BP systolic 68–169; BP diastolic 43–110
[2021-12-19] MEDS ORDERED: ZIPRASIDONE MESYLATE 20 MG/VIAL IM STA (04:04)
[2021-12-19] MEDS: MORPHINE 2 MG SYG IVP PRN (04:18)
[2021-12-19 04:31] LABS: BASOPHILS % (AUTO) 0.4 % (0.0-5.0); EOSINOPHILS % (AUTO) 0.9 % (0.0-8.0); HEMATOCRIT 24.8 % (36-48); LYMPHOCYTES % (AUTO) 13.7 % (21.0-51.0); MEAN CORPUSCULAR HGB CONC 33.9 g/dL (32.0-36.0); MEAN CORPUSCULAR VOLUME 100.4 fL (79-99); NEUTROPHILS % (AUTO) 77.3 % (40.0-77.0); PLATELET COUNT (AUTO) 48 K/uL (130-400); RED BLOOD CELL COUNT(AUTO) 2.47 MIL/uL (4.00-5.50); RED CELL DISTRIBUTION WIDTH 18.3 % (11.0-15.5); WHITE BLOOD COUNT (AUTO) 5.7 K/uL (4.8-10.8)
[2021-12-19 04:39] LABS: CREATININE 3.3 mg/dL (0.5-1.5)
[2021-12-19 04:44] LABS: ALBUMIN 2.8 g/dL (3.5-5.0); TOTAL PROTEIN, SERUM 4.9 g/dL (6.0-8.3)
[2021-12-19] MEDS: METRONIDAZOLE 500MG/100ML BAG 100 ML IVPB SCH (06:07)
[2021-12-19] MEDS ORDERED: LEVO250T43 PO ×2 (07:59)
[2021-12-19] MEDS ORDERED: METR-172 PO ×2 (07:59)
[2021-12-19] MEDS ORDERED: MORPHINE 2 MG SYG IVP PRN (10:30)
[2021-12-19] MEDS ORDERED: LORAZEPAM 2 MG/ML 1 ML VIAL IM PRN (10:30)
== END 2021-12-19 15:00 | disposition hospice, home (50) | DRG 871 ==
LOC: EDH 14:04 → EDHIP 17:44 → OBSVTOIN 17:44 → EDHIP 17:47 → UNDOADMOB 17:47 → INTOOBSV 17:47 → OBSVTOIN 17:47 → 2BH 12-18 07:47
PROVIDERS: ADMIT Internal Medicine Pulmonary Disease; ATTEND Internal Medicine Pulmonary Disease
PROC: 0DH67UZ Insertion of Feeding Device into Stomach, Via Natural or Artificial Opening (ICD-10-PCS; principal; 2021-12-17)
DX: A41.9 Sepsis, unspecified organism (principal); G93.41 Metabolic encephalopathy; R65.21 Severe sepsis with septic shock; K76.7 Hepatorenal syndrome; K65.2 Spontaneous bacterial peritonitis; E87.2 Acidosis; N17.9 Acute kidney failure, unspecified; D68.9 Coagulation defect, unspecified; K56.7 Ileus, unspecified; N39.0 Urinary tract infection, site not specified; R18.8 Other ascites; K72.90 Hepatic failure, unspecified without coma; E03.9 Hypothyroidism, unspecified; I48.91 Unspecified atrial fibrillation; K74.60 Unspecified cirrhosis of liver; D69.6 Thrombocytopenia, unspecified; N18.9 Chronic kidney disease, unspecified; I12.9 Hypertensive chronic kidney disease with stage 1 through stage 4 chronic kidney disease, or unspecified chronic kidney disease; D63.8 Anemia in other chronic diseases classified elsewhere; E11.22 Type 2 diabetes mellitus with diabetic chronic kidney disease; E87.6 Hypokalemia; I25.10 Atherosclerotic heart disease of native coronary artery without angina pectoris; Z66 Do not resuscitate; Z51.5 Encounter for palliative care
CPT/HCPCS: 36415; 36600; 71045; 73501; 73502; 74176; 76700; 80048; 80053; 81001; 82140; 82803; 83605; 83690; 83735; 84100; 84145; 84443; 85025; 85027; 85610; 87040; 87088; 93005; 93306; 93356; G0378; J0282; J0696; J1885; J1956; J2250; J2370; J3475; J3480; J3486; J3490; J7050; J7060